=== PATIENT | male | born 1970 | race Caucasian/White ===

== ENCOUNTER → 2018-03-12 | Day surgery (SDC) | payer BC ==
[~2018-03-12] MED LIST: FENTANYL CITRATE/PF 100MCG/2 ML INJ ONE; MIDAZOLAM HCL 2 MG/2 ML VIAL ONE; PROPOFOL IV EMULSION 10 MG/ML 20 ML VIAL ONE; SOMA350 MG PO; XYZAL5 MG PO
--- NOTE | 2018-03-12 12:41 | Operative Report ---
DATE OF PROCEDURE: March 12, 2018 REFERRING PHYSICIAN: Dr. Sophia Márquez PROCEDURE PERFORMED: Esophagogastroduodenoscopy with biopsies and esophageal dilatation. INDICATIONS FOR PROCEDURE: Dysphagia to solids, acid reflux. MEDICATION: Patient was done under MAC. Please see anesthesiologist's note. PROCEDURE: With patient in left lateral decubitus position, the flexible fiberoptic Olympus gastroscope was introduced into the esophagus under direct visualization without any difficulty. Serpiginous ulcerations were noted in the mid and distal esophagus. There was a mild stricture noted at approximately 36 cm from the incisors and that was dilated to a size 52-[place] Dhillon. The scope was then advanced all the way to the GE junction which was at 40 cm from the incisors and the 40 cm segment distal to the stricture was velvety red and suspicious for Aguirre's. Biopsies were obtained. The scope was then advanced with ease into the stomach traversing a small sliding hiatal hernia. Mucosa overlying the antrum and the body revealed some patchy erythema and mild to moderate edema and biopsies were obtained and sent to stain for H. pylori. Pylorus appeared to be of normal contour and shape, was intubated with ease and the scope was advanced all the way to the 2nd portion of the duodenum. The scope was then withdrawn slowly and mucosa overlying the proximal 2nd portion and the duodenal bulb appeared to be within normal limits. The scope was then withdrawn back into the stomach and retroflexion mucosa overlying the fundus and the cardia appeared to be within normal limits. The scope was then straightened out. The stomach was decompressed. Scope subsequently withdrawn. Patient tolerated procedure well. IMPRESSION 1. Ulcerated distal esophagus. 2. Esophageal stricture at 36 cm from the incisors dilated to a size 52-[place]hillon. 3. Rule out Aguirre's esophagus. 4. Small sliding hiatal hernia. 5. Gastritis biopsied. Biopsies sent to stain for H. pylori. PLAN: Follow up histology. Initiate Protonix 40 mg one p.o. q.a.m. a.c. Patient will need a followup colonoscopy after 2 months of therapy to re-evaluate the esophagus and obtain surveillance biopsies at 2 cm intervals from the Aguirre's epithelium. Job#: [id number] cc:SOPHIA MÁRQUEZ DO
== END | disposition home or self-care (01) ==
LOC: OR 09:27
PROVIDERS: ATTEND Internal Medicine Gastroenterology
DX: K22.2 Esophageal obstruction (principal); K29.70 Gastritis, unspecified, without bleeding; K22.10 Ulcer of esophagus without bleeding; K21.9 Gastro-esophageal reflux disease without esophagitis; K44.9 Diaphragmatic hernia without obstruction or gangrene; R03.0 Elevated blood-pressure reading, without diagnosis of hypertension; F41.9 Anxiety disorder, unspecified; Z88.0 Allergy status to penicillin; Z01.810 Encounter for preprocedural cardiovascular examination; Z68.27 Body mass index [BMI] 27.0-27.9, adult
CPT/HCPCS: 43239; 43450; 93005; J2250

== ENCOUNTER → 2018-05-10 | Day surgery (SDC) | payer BC ==
[~2018-05-10] MED LIST changes: +LIDOCAINE HCL 2% LOCAL INJ 5 ML SDV VIAL INJ ONE; -PROPOFOL IV EMULSION 10 MG/ML 20 ML VIAL ONE; +PROPOFOL IV EMULSION 10 MG/ML 50 ML VIAL ONE; +SIMETHICONE 40 MG/0.6 ML BTL ONE
[2018-05-10 08:35] VITALS: BP 131/90
--- NOTE | 2018-05-10 08:51 | Operative Report ---
DATE OF PROCEDURE: May 10, 2018 PROCEDURE PERFORMED: Esophagogastroduodenoscopy with biopsies. REFERRING PHYSICIAN: Dr. Sophia Márquez INDICATIONS FOR EGD: History of ulcerated distal esophagus. MEDICATION: Patient was done under MAC. Please see anesthesiologist note. PROCEDURE IN DETAIL: With the patient in left lateral decubitus position, flexible fiberoptic Olympus gastroscope was introduced into the esophagus under direct visualization without any difficulty. The previously described ulcerations in the distal esophagus have resolved. There was an obvious approximately 5-cm segment of Aguirre's esophagus. The scope was then advanced with ease into the stomach traversing a small sliding hiatal hernia. Mucosa overlying the antrum and the body revealed some patchy areas of erythema. The pylorus was of normal contour and shape. It was intubated with ease and the scope was advanced all the way to the second portion of the duodenum. The scope was then withdrawn slowly and the mucosa overlying the proximal second portion and the duodenal bulb appeared to be within normal limits. The scope was then withdrawn back into the stomach and retroflexed. The mucosa overlying the fundus appeared to be within normal limits. The previously described hiatal hernia was also noted in the retroflexed position. The scope was then straightened out and was subsequently withdrawn back into the esophagus, and 4-quadrant biopsies were obtained every 2 cm. Patient tolerated the procedure well. IMPRESSION: 1. Aguirre's esophagus, 5-cm segment, 4-quadrant biopsies every 2 cm were obtained. 2. Small sliding hiatal hernia. 3. Gastritis. PLAN: Follow up histology. Continue Protonix 40 mg 1 p.o. q.a.m. a.c. Job#: [id number] cc:SOPHIA MÁRQUEZ DO
== END | disposition home or self-care (01) ==
LOC: OR 06:05
PROVIDERS: ATTEND Internal Medicine Gastroenterology
DX: K22.70 Barrett's esophagus without dysplasia (principal); K29.70 Gastritis, unspecified, without bleeding; K21.0 Gastro-esophageal reflux disease with esophagitis; K44.9 Diaphragmatic hernia without obstruction or gangrene; I10 Essential (primary) hypertension; Z88.0 Allergy status to penicillin
CPT/HCPCS: 43239; J2001; J2250

== ENCOUNTER → 2020-11-23 | Day surgery (SDC) | payer BC ==
[~2020-11-23] MED LIST changes: +FISH OIL 1,0001 EAC2 PO; +HYOSCYAMINE SULFATE 0.5 MG/ML INJ ONE; +METOCLOPRAMIDE HCL 10 MG/2ML VIAL ONE; +PANTOPRAZOLE SO40 MG PO; +PROPOFOL IV EMULSION 10 MG/ML 20 ML VIAL ONE; -PROPOFOL IV EMULSION 10 MG/ML 50 ML VIAL ONE; -SIMETHICONE 40 MG/0.6 ML BTL ONE; +VIT C PO; +ZESTRIL10 MG PO
[2020-11-23 10:50] VITALS: BP 139/96
== END | disposition home or self-care (01) ==
LOC: OR 08:08
PROVIDERS: ATTEND Internal Medicine Gastroenterology
DX: Z12.11 Encounter for screening for malignant neoplasm of colon (principal); K63.5 Polyp of colon; K29.70 Gastritis, unspecified, without bleeding; K22.70 Barrett's esophagus without dysplasia; K20.90 Esophagitis, unspecified without bleeding; K21.9 Gastro-esophageal reflux disease without esophagitis; K44.9 Diaphragmatic hernia without obstruction or gangrene; K64.8 Other hemorrhoids; I49.8 Other specified cardiac arrhythmias; I10 Essential (primary) hypertension; Z88.0 Allergy status to penicillin; Z01.810 Encounter for preprocedural cardiovascular examination; Z01.812 Encounter for preprocedural laboratory examination; Z20.822 Contact with and (suspected) exposure to COVID-19; Z68.28 Body mass index [BMI] 28.0-28.9, adult
CPT/HCPCS: 43239; 45380; 93005; J1980; J2001; J2250; J2704; J2765; J3010; U0002; 45378; 45384